=== PATIENT | male | born 1950 | race Caucasian/White ===

== ENCOUNTER 2017-06-26 14:05 | Emergency (ER) | payer BC ==
[~2017-06-26] VITALS: Ht 182.9 cm; Wt 89.8 kg
--- NOTE | ~2017-06-26 | CT71 ---
[facility] A Service of [facility] RADIOLOGY TEXT RESULTS PATIENT: CHYNA LIU LOCATION: [facility] : 54 UNIT #: [id number] AGE: [address]: Laureano Navarro MD SEX: M ORDER DR: [id number] [facility] [address] [place], [place] [address] [id number] MR#: [id number] Acc #: [id number] NAME: CHYNA LIU. : 1950 SEX: M STUDY DATE/TIME: 06/26/2017 16:44 UNIT: [facility] ROOM: STUDY DESCRIPTION: CT Head Wo Contrast Attending Physician: Laureano Navarro M.D. Ordering Physician: Laureano Navarro M.D. Primary Care Physician: Pilar Vora A.P.R.N. MEDICAL IMAGING REPORT This report is preliminary unless electronic signature is present EXAM CT head 06/26/2017 HISTORY Dizzy today. History of hypertension, enlarged prostate, leukemia, eyes crossed bilateral, posterior cyst lungs. FINDINGS CT head performed skull base through vertex without intravenous contrast. No prior CTs of head for comparison at this institution. Comparison with any prior studies is strongly recommended. This CT examination was performed with one or more of the following radiation dose reduction techniques: automatic exposure control, adjustment of mA and/or kV according to patient size, and iterative reconstruction. The brainstem is unremarkable. The cerebellum shows no acute abnormality. Large area of encephalomalacic change involving the left mid to posterior temporal lobe, much of the left parietal lobe, and portions of the left insular cortex. I would favor this represents remote vascular insult in left middle cerebral artery distribution. Correlate with history. Remaining brain parenchyma shows normal main matter - white matter differentiation without evidence of acute hemorrhage or acute cortical ischemia. No acute-appearing basal ganglia abnormality. The midline structures are nondisplaced given patient obliquity in scanner. The ventricles, cisterns and sulci show mild generalized enlargement suggesting a degree of mild generalized underlying atrophy. There is no intra- or extraaxial mass effect. There are prominent cavernous carotid arterial calcifications. The intraorbital soft tissues are unremarkable. The visualized paranasal sinuses and mastoid air cells are clear. Prominent venous lakes in the left parietal bone. There are some areas of cortical thinning raising the possibility of prior cranial intervention. Again please correlate with history. IMPRESSION [facility] A Service of [facility] RADIOLOGY TEXT RESULTS PATIENT: CHYNA LIU LOCATION: [facility] : 54 UNIT #: [id number] AGE: [address]: Laureano Navarro MD SEX: M ORDER DR: 1. There is no clearly acute abnormality seen within the brain. There is a large area of encephalomalacia involving the left temporal lobe, parietal lobe and portions of the left insular cortex. I would favor that this represents remote vascular insult in left middle cerebral artery distribution. Post-traumatic or postoperative change could be considered. Historical clarification recommended. The overlying bony structures show areas of cortical thinning at some locations which could be sequelae of prior operative intervention. 2. There is no evidence of acute ischemia or hemorrhage. There is no intracranial mass effect. 3. Vascular calcifications. 4. Underlying mild generalized atrophy. Dictated by... Michael Crespo M.D. THIS IS AN ELECTRONICALLY VERIFIED REPORT Michael Crespo M.D. at 06/28/2017 10:02 PM CATHRYN/miguel TD: 06/27/2017 06:17 JOB #: [id number] MEDICAL IMAGING REPORT Page 1 of 1 COPY
--- NOTE | ~2017-06-26 | EKG ---
PATIENT: CHYNA LIU UNIT #: [id number] Ventricular Rate: 54 BPM Atrial Rate: 54 BPM P-R Interval: 196 ms QRS Duration: 100 ms Q-T Interval: 478 ms QTC Calculation(Bezet): 453 ms P Gibbs: 59 degrees Calculated R Gibbs: 8 degrees Calculated T Gibbs: 61 degrees Diagnosis Line: Sinus bradycardia Diagnosis Line: Nonspecific T wave abnormality Diagnosis Line: Abnormal ECG Diagnosis Line: When compared with ECG of 04-JAN-2016 09:00, Diagnosis Line: No significant change was found Diagnosis Line: Confirmed by VIV MUJICA MD ([id number]) on Diagnosis Line: 06/27/2017 10:53:05 AM INTERPRETING MD: SIL BUNDY
[~2017-06-26 14:05] MED LIST: ALLER-TEC10 M1 PO; AMLODIPINE BESYL5 MG PO; ASPIRIN81 M2 PO; DILANTIN KAPSE100 MG; DILANTIN KAPSE100 MG PO; FINASTERIDE5 M1 PO; FLAGYL PO; FLOMAX0.4 M1 PO; LAMICTAL ODT100 MG PO; LAMICTAL PO; METOPROLOL SUCC50 MG PO; VICODIN 5/1 TAB 5/50 PO
[2017-06-26 15:00] LABS: URINE SOURCE CLEAN CATCH
[2017-06-26 15:04] LABS: URINE APPEARANCE CLEAR; URINE BILIRUBIN NEG (NEG); URINE BLOOD NEG (NEG); URINE COLOR YELLOW; URINE GLUCOSE NEG (NEG); URINE KETONE NEG (NEG); URINE LEUKOCYTE ESTERASE NEG (NEG); URINE NITRATE NEG (NEG); URINE PH 6.5 (5-8); URINE PROTEIN TRACE (NEG); URINE SPECIFIC GRAVITY 1.021 (1.003-1.035)
[2017-06-26 15:11] LABS: BASOPHIL# 0.1 X10e3 (0-0.3); BASOPHIL% 0.4 % (0-2.5); EOSINOPHIL# 0.2 X10e3 (0-0.7); EOSINOPHIL% 1.2 % (0.0-7.0); HEMATOCRIT 45.5 % (38.0-50.0); HEMOGLOBIN 15.4 gm/dL (13.0-16.0); LYMPHOCYTE% 69.6 % (17.0-45.0); MEAN CELL VOLUME 98.3 FL (83-96); MEAN CORPUSCULAR HEMOGLOBIN 33.2 PG (28-34); MEAN CORPUSCULAR HGB CONC 33.8 g/dL (30-36); MEAN PLATELET VOLUME 8.5 FL (6.5-11.5); MONOCYTE# 0.4 X10e3 (0-1.0); MONOCYTE% 2.5 % (3.0-12.0); NEUTROPHIL# 3.8 X10e3 (1.5-7.1); NEUTROPHIL% 26.3 % (40-75); PLATELET COUNT 173 X10e3 (140-420); RED BLOOD COUNT 4.63 X10e (3.90-5.60); RED CELL DISTRIBUTION WIDTH 14.7 % (11.0-15.5); WHITE BLOOD COUNT 14.4 X10e3 (4.0-10.5)
[2017-06-26 15:11] LABS: CULTURE INDICATED? NO
[2017-06-26 15:18] LABS: POC - CKMB 1.1 ng/mL (0.0-7.9); POC - TROPONIN <0.05 ng/mL (<=0.05)
[2017-06-26 15:21] LABS: DIFF IND YES
[2017-06-26 15:29] LABS: ALBUMIN SERUM 4.6 g/dL (3.5-5.0); BILIRUBIN, DIRECT 0.1 mg/dL (0.0-0.2); BILIRUBIN,INDIRECT 0.3 mg/dL (0.0-0.9); BILIRUBIN,TOTAL 0.4 mg/dL (0.2-2.0); BUN/CREATININE RATIO 16.25; CALCIUM SERUM 9.2 mg/dL (8.4-10.2); CREATININE SERUM 0.8 mg/dL (0.6-1.4); GLOM FILT RATE Estimated 94.4 mL/min (>60); PROTEIN TOTAL SERUM 6.9 g/dL (6.0-8.3)
[2017-06-26 15:30] LABS: ANISOCYTOSIS MOD; PLATELET ESTIMATE NORMAL (NORMAL); POIKILOCYTOSIS SL
== END 2017-06-26 18:44 | disposition home or self-care (01) ==
LOC: CED 14:05
PROVIDERS: Emergency Medicine
DX: R42 Dizziness and giddiness (principal); T42.0X5A Adverse effect of hydantoin derivatives, initial encounter; I10 Essential (primary) hypertension; R56.9 Unspecified convulsions
CPT/HCPCS: 36415; 70450; 80048; 80076; 80185; 81003; 82553; 82947; 84484; 85025; 93005; 99285